=== PATIENT | male | born 1980 | race Caucasian/White ===

== ENCOUNTER 2025-02-16 17:13 | Outpatient (CLI) | payer MEDICARE, SELFPAY ==
--- NOTE | ~2025-02-16 | XR_ITS ---
HISTORY: LEFT ANKLE INJURY COMPARISON: None TECHNIQUE: 3 views of the left ankle were performed FINDINGS: No acute fracture or dislocation. Moderate bilateral soft tissue swelling. The ankle mortise is preserved. Bone mineralization is age-appropriate. IMPRESSION: Soft tissue swelling, without acute fracture or dislocation Reviewed, dictated and finalized at location A.
--- OUTSIDE RECORDS SUMMARY | 2025-02-16 18:24 | XMS_ITS ---
Author Organization [facility] Address [address] [place] [address] Care Team Providers Care Construction Person Name Role Phone Cathy Jensen Primary Care Provider Encounters Encounter Location Date Provider Diagnosis [facility] [address] [place] [address] 12/04/2023 Cathy Jensen Plan Of Treatment No Information Progress Notes * PERLAMajor MERCADODOB:1980 (43 yo M)Acc No.[id number]:12/04/2023 Patient: Major Lobato :1980 A ge:43 Y S ex:Male Address:[address] [place], [place] [address], [address] * true * Date: Generated for Amarilis abel/Cam/eTransmitting on: 0 02/16/2025 06:24 PM CDT
--- OUTSIDE RECORDS SUMMARY | 2025-02-16 18:25 | XMS_ITS ---
Author Organization [facility] Address [address] [place] [address] Care Team Providers Care Social Sciences Instructor Name Role Phone Cathy Jensen Primary Care Provider Encounters Encounter Location Date Provider Diagnosis [facility] [address] [place] [address] 12/04/2023 Cathy Jensen Plan Of Treatment No Information Progress Notes * PERLAMajor MERCADODOB:1980 (43 yo M)Acc No.[id number]:12/04/2023 Patient: Major Lobato :1980 A ge:43 Y S ex:Male Address:[address] [place], [place] [address] [place], [address] * true * Date: Generated for Amarilis abel/Cam/eTransmitting on: 0 02/16/2025 06:25 PM CDT
--- OUTSIDE RECORDS SUMMARY | 2025-02-16 18:25 | XMS_ITS ---
Author Organization [facility] Address [address] [place] [address] Care Team Providers Care Boomswing Operator Name Role Phone Jaimee Jain Primary Care Provider [phone] REASON FOR VISIT labs Medications Medication SIG (Take, Route, Frequency, Duration) Notes Start Date End Date Status Sertraline HCl 100 MG 1 1/2 tabs Orally Once a day Active hydrOXYzine HCl 25 MG 1 tablet every mor linda Orally Once a day Active hydrOXYzine HCl 25 MG 2 tabs Orally ever y evening Active Prazosin HCl 5 MG 1 capsule at bedtime Orally Once a day Active Combivent Respimat 20-100 MCG/ACT 1 puff as needed Inhalation every 6 hrs Active busPIRone HCl 10 MG 2 tablet Orally 1-2 times daily Active Social History Sex Assigned At : Social History Observation Description Sex Assigned At Male Encounters Encounter Location Date Provider Diagnosis [facility] [address] [place] [address] 02/10/2025 Jaimee Jain Plan Of Treatment Next Appt Details Provider Name:Daisha kwon, 02/17/2025 10:00:00 AM, [address], [address], Provider Name:Jaimee neal, 02/24/2025 08:20:00 AM, [address], [place], [address], Progress Notes * Major BELLO MDOB: 9 (44 yo M)Acc No.[id number]:02/10/2025 UNLOCKED PROGRESS NOTE Patient: Major JACKSON Provider: Kat Jain APRN :1980 A ge:44 Y S ex:Male Date:02/10/2025 Phone: [facility] [facility] Subjective: * Chief Complaints: * 1 . Labs. * Medical History: * Medications: T aking busPIRone HCl 10 MG Tablet 2 tablet Orally 1-2 times daily, Taking Sertraline HCl 100 MG Tablet 1 1/2 tabs Orally Once a day , Taking hydrOXYzine HCl 25 MG Tablet 1 tablet every morning Orally Once a day , Taking hydrOXYzine HCl 25 MG Tablet 2 tabs Orally every evening , Taking Prazosin HCl 5 MG Capsule 1 capsule at bedtime Orally Once a day , Taking Combivent Respimat 20-100 MCG/ACT Aerosol Solution 1 puff as needed Inhalation every 6 hrs Objective: * Vitals: Assessment: Plan: * Treatment: * * Electronic signature of Danielle Jain , [id number] on 02/16/2025 at 06:25 PM CDT Sign off status: Pending * Provider: Kat Jain APRN Date: 0 02/10/2025 Generated for Amarilis abel/Cam/Hi on: 02/16/2025 06:25 PM CDT
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
--- OUTSIDE RECORDS SUMMARY | 2025-02-16 18:25 | XMS_ITS | Clinical Summary ---
Author Organization [facility] Address [facility] [place] [address] Care Team Providers Care Seed Expert Name Role Phone Adan Epperson MD Primary Care Provider [phone] Allergies Active Allergy Reactions Criticality Noted Date Comments Penicillins Unknown 10/05/2022 Medications * This document contains information received from the source organization and may not represent a complete record from that organization. albuterol sulfate HFA 108 (90 Base) MCG/ACT inhaler Inhale 2 puffs into the lungs every 4 (four) hours as needed. Active prazosin (MINIPRESS) 1 MG capsule Take 2 capsules (2 mg total) by mouth nightly at bedtime. 09/01/2022 Active sertraline (ZOLOFT) 100 MG tablet Take 1 tablet (100 mg total) by mouth daily. 08/31/2022 Active busPIRone (BUSPAR) 10 MG tablet Take 2 tablets (20 mg total) by mouth 2 (two) times daily. 90 tablet 01/13/2023 Active Active Problems Problem Noted Date Diagnosed Date Alcohol withdrawal ([facility] 11/22/2023 Acute hyperactive alcohol wi thdrawal delirium ([facility]) 01/10/2023 Resolved Problems Problem Noted Date Diagnosed Date Resolved Date Alcohol withdrawal ([facility]) 10/05/2022 01/13/2023 Social History Tobacco Use Types Packs/Day Years Used Date Smoking Tobacco: Every Day Cigarettes 1 40 Started: 1992 Smokeless Tobacco: Former Chew Tobacco Cessation:Ready to Q uit: Not Asked; Counseling Given: Not Answered [facility] Utilities Answer Date Recorded In the past 12 months has th e electric, gas, oil, or water Storemates threatened to shut off services in your home? No 11/22/2023 Humiliation, Afraid, Rape, and Kick questionnair e Answer Date Recorded Within the last year, have y ou been afraid of your partner or ex-partner? Patient declined 11/22/2023 Within the last year, have y ou been humiliated or emotionally abused in other ways by your partner or ex-partner? Patient declined 11/22/2023 Within the last year, have y ou been kicked, hit, slapped, or otherwise physically hurt by your partner or ex-partner? Patient declined 11/22/2023 Within the last year, have y ou been raped or forced to have any kind of sexual activity by your partner or ex-partner? Patient declined 11/22/2023 Social Connection and Isolat ion Panel [NHANES] Answer Date Recorded In a typical week, how many times do you talk on the phone with family, friends, or neighbors? Three times a week 01/10/2023 How often do you get togethe r with friends or relatives? More than three times a week 01/10/2023 How often do you attend chur ch or muslim services? 1 to 4 times per year 01/10/2023 Do you belong to any clubs o r organizations such as anglican groups, unions, fraternal or athletic groups, or school groups? Yes 01/10/2023 How often do you attend meet ings of the clubs or organizations you belong to? 1 to 4 times per year 01/10/2023 Marital Status Not on file 01/10/2023 AUDIT-C Answer Date Recorded Q1: How often do you have a drink containing alcohol? 4 or more times a week 01/10/2023 Q2: How many drinks containi ng alcohol do you have on a typical day when you are drinking? 10 or more Q3: How often do you have si x or more drinks on one occasion? Daily or almost daily 01/10/2023 Overall Financial Resource Strain (CARDIA) Answe r Date Recorded How hard is it for you to pa y for the very basics like food, housing, medical care, and heating? Not hard at all 11/22/2023 [facility] - Occupational Stress Questionnaire Answer Date Recorded Do you feel stress - tense, restless, nervous, or anxious, or unable to sleep at night because your mind is troubled all the time - these days? Not at all 01/10/2023 Hunger Vital Sign Answer Date Recorded Within the past 12 months, y ou worried that your food would run out before you got the money to buy more. Never true 11/22/19 24 Within the past 12 months, t he food you bought just didn't last and you didn't have money to get more. Never true 11/22/2023 PRAPARE - Transportation Answer Date Re corded In the past 12 months, has l ack of transportation kept you from medical appointments or from getting medications? No 10/29 In the past 12 months, has l ack of transportation kept you from meetings, work, or from getting things needed for daily living? No 11/22/2023 Housing Stability Vital Sign Answer Ranedll e Recorded In the last 12 months, was t here a time when you were not able to pay the mortgage or rent on time? No 11/22/2023 In the last 12 months, how many places have you lived? 1 11/22/2023 In the last 12 months, was t here a time when you did not have a steady place to sleep or slept in a senior living (including now)? No 11/22/2023 Sex and Gender Information Value Date Recorded Sex Assigned at Not on file Legal Sex Male 9:29 PM [employer] Gender Identity Not on file Sexual Orientation Not on file Last Filed Vital Signs Vital Sign Reading Time Taken Comments Blood Pressure 118/73 11/25/2023 9:28 AM [employer]KEEPER Pulse 75 11/25/2023 9:28 AM [employer] Temperature 36.6 C (97.8 F) 11/25/2023 9:28 AM [employer]PER Respiratory Rate 18 11/25/2023 9:28 AM [employer] BOOKKEEPER Oxygen Saturation 95% 11/25/2023 9:28 AM [employer]PER Inhaled Oxygen Concentration - - Weight 64 kg (141 lb) 11/22/2023 11:00 AM [employer] Height 172.7 cm (5' 8 ) 11/22/2023 11:00 AM [employer] Body Mass Index 21.44 11/22/2023 11:00 AM [employer]PER Plan of Treatment Health Maintenance Due Date Last Done Comments Colorectal Cancer Screening Colonoscopy (10 Years) 1979 Annual Physical 1982 Hepatitis C 1997 DTaP, Tdap and Td Vaccines ( 1 - Tdap) 1998 Hepatitis B Vaccines (1 of 3 - 19+ 3-dose series) 1998 Pneumococcal Vaccine: Pediat rics (0 to 5 Years) and At-Risk Patients (6 to 49 Years) (1 of 2 - PCV) 1998 COVID-19 Vaccine (2023-2 5 season) 2024 HPV Vaccines Aged Out No longer eligi ble based on patient's age to complete this topic Meningococcal B Vaccine Aged Out No l onger eligible based on patient's age to complete this topic Meningococcal Vaccine Aged Out No cayetano thomas eligible based on patient's age to complete this topic RSV Immunizations Under 20 Months Aged Out No longer eligible based on patient's age to complete this topic Insurance [facility] [place] [id number] MEDICAID UHC Advance Directives * Full Code (Latest Code Status on File) Date Activated Date Inactivated Comments 11/22/2023 1:08 PM 11/25/2023 1:57 PM * Full Code Date Activated Date Inactivated Comments 01/10/2023 12:56 PM 01/13/2023 11:30 AM * Full Code Date Activated Date Inactivated Comments 10/05/2022 4:32 PM 10/08/2022 10:46 AM Care Teams Seed Expert Relationship Specialty Start Date End Date Adan Epperson MD [address] [place] [phone] PCP - General FAMILY PRACTICE 10/05/22
--- OUTSIDE RECORDS SUMMARY | 2025-02-16 18:25 | XMS_ITS ---
Author Organization [facility] Address [address] [place] [address] Care Team Providers Care Spreading Machine Operator Name Role Phone Jaimee Jain Primary Care Provider [phone] REASON FOR VISIT Lab results Social History Sex Assigned At : Social History Observation Description Sex Assigned At Male Problems Problem Type SNOMED Code ICD Code Onset Dates Problem Status W/U Status Risk Notes Problem Laboratory test result abnormal (998312028) Abnormal laboratory test result (R89.9) Active confirmed Encounters Encounter Location Date Provider Diagnosis [address] [address] 02/15/2025 Jaimee Jain Abnormal laboratory test result R89.9 Assessments Encounter Date Diagnosis (ICD Code) Assessment Notes Treatment Notes Treatment Clinical Notes Section Notes 02/15/2025 Abnormal laboratory test result (ICD-10 - R89.9) Plan Of Treatment Future Test Test Name Order Date CBC With Differential/Platelet* 02/25/20 25 Next Appt Details Provider Name:Daisha kwon, 02/17/2025 10:00:00 AM, [address], [address], Provider Name:Jaimee neal, 02/24/2025 08:20:00 AM, [address], [place], [address], Progress Notes * Major BELLO MDOB: 9 (44 yo M)Acc No.[id number]:02/15/2025 Patient: Major JACKSON :1980 A ge:44 Y S ex:Male Phone: Address:[address] [place] [address] Jaky Ayala, [place], [address] Subjective: * Chief Complaints: * L ab results * Medical History: * Surgical History: * Hospitalization/Major Diagno stic Procedure: * Medications: Objective: * Vitals: * Physical Examination: Assessment: * Assessment: 1. A bnormal laboratory test result - R89.9 (Primary) Plan: * Treatment: * Procedure Codes: * true * Date: Generated for Amarilis abel/Cam/Sharlasmitting on: 0 02/16/2025 06:24 PM CDT
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
== END 2025-02-16 17:14 | disposition home or self-care (01) ==
DX: M25.472 Effusion, left ankle (principal); S99.912A Unspecified injury of left ankle, initial encounter; X58.XXXA Exposure to other specified factors, initial encounter
CPT/HCPCS: 73610